=== PATIENT | male | born 1975 | race Caucasian/White ===

== ENCOUNTER 2024-10-20 12:56 | Inpatient (IN) | payer BC ==
[2024-10-20 14:46] LABS: Hematocrit 30.1 % (42.0-52.0); Hemoglobin 9.2 g/dL (14.0-18.0); Mean Corpuscular HGB CONC 30.6 g/dL (32.0-36.0); Mean Corpuscular Hemoglobin 31.5 pg (27.0-31.0); Mean Corpuscular Volume 103.1 fL (78.0-98.0); Mean Platelet Volume 9.1 fL (7.4-10.4); Platelet Count 146 10x3/uL (130-400); RBC Distribution Width 19.6 % (11.5-14.5); Red Blood Cell (RBC) Count 2.92 mill/uL (4.70-6.10); White Blood Cell (WBC) Count 45.26 10x3/uL (4.8-10.8)
[2024-10-20 14:58] LABS: INR-International Normal Ratio 1.4; PTT 37.4 sec (22.9-36.1)
[2024-10-20 15:04] LABS: ALT (SGPT) 13 U/L (Less than 45); AST (SGOT) 21 U/L (11-34); Albumin 1.8 g/dL (3.1-4.5); Alkaline Phosphatase 221 U/L (40-110); Anion Gap 15 mmol/L (10-20); BUN (Urea Nitrogen) 45 mg/dL (8.4-25.7); Bilirubin, Total 2.1 mg/dL (0.3-1.2); Calc. Creatinine Clearance 0 mL/min (70-130); Calcium 8.3 mg/dL (7.8-10.44); Carbon Dioxide 22 mmol/L (22-29); Chloride 103 mmol/L (98-107); Estimated GFR 26; Globulin 5.1 g/dL (2.4-3.5); Glucose 118 mg/dL (70-105); Lipase 32 U/L (8-78); Protein, Total 6.9 g/dL (6.0-8.3); Sodium 135 mmol/L (136-145)
[2024-10-20 15:07] LABS: Troponin I Less than 0.010 ng/mL (< 0.028)
[2024-10-20 15:10] LABS: Anisocytosis SLIGHT = 6-15 cells HPF (0-5); Burr Cells SLIGHT = 2-5 cells HPF (0-1); Hypochromia SLIGHT = 6-15 cells HPF (0-5); Lymphocytes 2 % (21-51); Macrocytosis SLIGHT = 6-15 cells HPF (0-5); Neutrophil 98 % (42-75); Platelet Adequacy Comment Platelets Normal; Polychromasia SLIGHT = 2-3 cells HPF (0-2)
[2024-10-20 15:15] LABS: Bilirubin 1+ (Negative); Blood, Urine 1+ (Negative); Clarity Turbid (Clear); Glucose, Urine (Dipstick) Normal (Negative); Ketone, Urine Negative (Negative); Leukocyte 25 Leu/uL (Negative); Nitrite Negative (Negative); Protein, Urine (Dipstick) 10 mg/dL (Neg-Trace); Specific Gravity, Urine 1.025 (1.002-1.036); Urobilinogen 6 mg/dL (Less than 2)
[2024-10-20 15:25] LABS: Bacteria/HPF Rare-Few HPF (None Seen); CAUTI Indications for Culture Alt mental st,lethar; RBC/HPF 0-3 HPF (0-3); Squamous Epithelial None Seen HPF (0-3); WBC/HPF 0-3 HPF (0-3)
[2024-10-20 15:27] LABS: Urine Culture Reflex No No
[2024-10-20] MEDS ORDERED: Calcium Carbonate 500 MG ChewTAB PO PRN (18:10)
[2024-10-20] MEDS ORDERED: Ondansetron ODT 4 MG TAB PO PRN (18:10)
[2024-10-20] MEDS ORDERED: OXYCODONE HCL 10 MG PO PRN (18:13)
[2024-10-20] MEDS ORDERED: Ipratropium/Albuterol 3 ML NEB NEB PRN (18:21)
[2024-10-20 18:22] LABS: Lactic Acid 2.43 mmol/L (0.50-2.20)
[2024-10-20 20:24] LABS: Troponin I Less than 0.010 ng/mL (< 0.028)
[2024-10-20 20:59] VITALS: BMI 21.3
[2024-10-20] MEDS ORDERED: Vancomycin Dose by Levels Sliding Scale (Wt <71) FS SCH (21:15)
[2024-10-20] MEDS: Lactulose 20 GM (30 mL) UDCUP PO SCH (21:55)
[2024-10-20] MEDS: oxyCODONE 5 MG TAB PO PRN (21:56)
[2024-10-20] MEDS: Thiamine 100 MG TAB PO SCH (21:56)
[2024-10-20] MEDS: Sodium Chloride 0.9% 250 ML IV SCH (21:57)
[2024-10-20] MEDS: metroNIDAZOLE 500 MG in Premix 1 BAG IVPB SCH (21:57)
[2024-10-20] MEDS: Cefepime 1 GM in Sodium Chloride 0.9% 100 ML IVPB SCH (21:57)
[2024-10-20] MEDS: Dextrose 5 % And 0.9 % NaCl 1,000 ML IV SCH (21:57)
[2024-10-20] MEDS: Albumin 25% 25 GM (100 mL) BOT IVPB SCH (21:57)
[2024-10-20] MEDS: Vancomycin 1.25 GM / NS 250 ML VIAL-2-BAG IVPB SCH (22:32)
[2024-10-20] MEDS: Rifaximin 550 MG TAB PO SCH (22:32)
[2024-10-20] MEDS: Vancomycin 1 GM in Premix 1 BAG IVPB SCH (23:02)
[2024-10-21] MEDS ORDERED: VICKS VAPORUB TOP PRN (00:45)
[2024-10-21] MEDS ORDERED: Vicks VapoRub 50 gm Jar TOP PRN (00:57)
[2024-10-21] MEDS: Midodrine HCl 5 MG TAB PO SCH ×2 (01:10→21:37)
[2024-10-21 02:52] LABS: Hematocrit 29.4 % (42.0-52.0); Hemoglobin 8.5 g/dL (14.0-18.0); Mean Corpuscular HGB CONC 28.9 g/dL (32.0-36.0); Mean Corpuscular Hemoglobin 31.4 pg (27.0-31.0); Mean Corpuscular Volume 108.5 fL (78.0-98.0); Mean Platelet Volume 8.8 fL (7.4-10.4); Platelet Count 113 10x3/uL (130-400); RBC Distribution Width 20.1 % (11.5-14.5); Red Blood Cell (RBC) Count 2.71 mill/uL (4.70-6.10); White Blood Cell (WBC) Count 32.35 10x3/uL (4.8-10.8)
[2024-10-21 02:55] LABS: Phosphorus 4.2 mg/dL (2.5-4.5)
[2024-10-21 02:56] LABS: Lactic Acid 1.85 mmol/L (0.50-2.20)
[2024-10-21 02:57] LABS: ALT (SGPT) 12 U/L (Less than 45); AST (SGOT) 17 U/L (11-34); Albumin 2.1 g/dL (3.1-4.5); Alkaline Phosphatase 190 U/L (40-110); Anion Gap 15 mmol/L (10-20); BUN (Urea Nitrogen) 55 mg/dL (8.4-25.7); Bilirubin, Total 1.8 mg/dL (0.3-1.2); Calc. Creatinine Clearance 29 mL/min (70-130); Calcium 7.9 mg/dL (7.8-10.44); Carbon Dioxide 20 mmol/L (22-29); Chloride 105 mmol/L (98-107); Estimated GFR 27; Globulin 4.5 g/dL (2.4-3.5); Glucose 105 mg/dL (70-105); Magnesium 1.9 mg/dL (1.6-2.6); Potassium 5.1 mmol/L (3.5-5.1); Protein, Total 6.6 g/dL (6.0-8.3); Sodium 135 mmol/L (136-145)
[2024-10-21 03:35] LABS: Anisocytosis MODERATE=16-30 cells HPF (0-5); Band 1 % (5-11); Lymphocytes 1 % (21-51); Macrocytosis SLIGHT = 6-15 cells HPF (0-5); Monocytes 1 % (0-10); Neutrophil 97 % (42-75); Platelet Adequacy Comment Platelets Decreased; Polychromasia SLIGHT = 2-3 cells HPF (0-2)
[2024-10-21] MEDS: Albumin 25% 25 GM (100 mL) BOT IVPB SCH (04:32)
[2024-10-21] MEDS: Acetaminophen 325 MG TAB PO PRN (05:36)
[2024-10-21] MEDS: Pantoprazole 40 MG DR.TAB PO SCH (07:53)
[2024-10-21] MEDS: Ondansetron PF 4 MG/2 ML Vial IVP PRN (14:31)
[2024-10-21] MEDS: Sodium Chloride 0.9% 1,000 ML IV SCH (18:43)
[2024-10-21] MEDS: Octreotide Acetate 1,250 MCG in Sodium Chloride 0.9% 250 ML 250 ML IVPB SCH (21:38)
[2024-10-22 00:23] LABS: Vancomycin, Trough 12.7 ug/mL
[2024-10-22] MEDS ORDERED: Vicks VapoRub 50 gm Jar ONE (00:57)
[2024-10-22] MEDS: VANCOMYCIN IV SCH (01:08)
[2024-10-22] MEDS: NACL 0.9% IV SCH (01:08)
[2024-10-22 02:17] LABS: Hematocrit 26.2 % (42.0-52.0); Hemoglobin 7.7 g/dL (14.0-18.0); Mean Corpuscular HGB CONC 29.4 g/dL (32.0-36.0); Mean Corpuscular Hemoglobin 31.6 pg (27.0-31.0); Mean Corpuscular Volume 107.4 fL (78.0-98.0); Mean Platelet Volume 9.2 fL (7.4-10.4); Platelet Count 73 10x3/uL (130-400); RBC Distribution Width 20.1 % (11.5-14.5); Red Blood Cell (RBC) Count 2.44 mill/uL (4.70-6.10); White Blood Cell (WBC) Count 27.97 10x3/uL (4.8-10.8)
[2024-10-22 02:45] LABS: Anion Gap 15 mmol/L (10-20); BUN (Urea Nitrogen) 57 mg/dL (8.4-25.7); Calc. Creatinine Clearance 29 mL/min (70-130); Calcium 7.8 mg/dL (7.8-10.44); Carbon Dioxide 19 mmol/L (22-29); Chloride 108 mmol/L (98-107); Estimated GFR 26; Glucose 106 mg/dL (70-105); Potassium 4.6 mmol/L (3.5-5.1); Sodium 137 mmol/L (136-145)
[2024-10-22 02:47] LABS: Lactic Acid 2.29 mmol/L (0.50-2.20)
[2024-10-22 02:53] LABS: Macrocytosis SLIGHT = 6-15 cells HPF (0-5); Monocytes 4 % (0-10); Neutrophil 96 % (42-75); Platelet Adequacy Comment Platelets Decreased; Smudge Cells 6.8 %
[2024-10-22 04:42] LABS: INR-International Normal Ratio 1.7; Prothrombin Time 19.8 sec (12.0-14.7)
[2024-10-22 04:46] LABS: Hematocrit 25.3 % (42.0-52.0); Hemoglobin 7.3 g/dL (14.0-18.0); Mean Corpuscular HGB CONC 28.9 g/dL (32.0-36.0); Mean Corpuscular Hemoglobin 30.9 pg (27.0-31.0); Mean Corpuscular Volume 107.2 fL (78.0-98.0); Mean Platelet Volume 8.6 fL (7.4-10.4); Platelet Count 95 10x3/uL (130-400); Red Blood Cell (RBC) Count 2.36 mill/uL (4.70-6.10); White Blood Cell (WBC) Count 28.02 10x3/uL (4.8-10.8)
[2024-10-22 04:54] LABS: ALT (SGPT) 11 U/L (Less than 45); AST (SGOT) 15 U/L (11-34); Albumin 2.9 g/dL (3.1-4.5); Alkaline Phosphatase 145 U/L (40-110); Anion Gap 13 mmol/L (10-20); BUN (Urea Nitrogen) 56 mg/dL (8.4-25.7); Bilirubin, Total 1.9 mg/dL (0.3-1.2); Calc. Creatinine Clearance 29 mL/min (70-130); Calcium 7.7 mg/dL (7.8-10.44); Carbon Dioxide 21 mmol/L (22-29); Chloride 108 mmol/L (98-107); Estimated GFR 27; Globulin 3.4 g/dL (2.4-3.5); Glucose 112 mg/dL (70-105); Potassium 4.3 mmol/L (3.5-5.1); Protein, Total 6.3 g/dL (6.0-8.3); Sodium 138 mmol/L (136-145)
[2024-10-22] MEDS: Melatonin 3 MG TAB PO SCH (04:59)
[2024-10-22] MEDS: Dexmedetomidine In 0.9 % NaCl 100 ML IVPB SCH (05:48)
[2024-10-22 06:11] LABS: Anisocytosis SLIGHT = 6-15 cells HPF (0-5); Band 1 % (5-11); Burr Cells SLIGHT = 2-5 cells HPF (0-1); Lymphocytes 1 % (21-51); Macrocytosis SLIGHT = 6-15 cells HPF (0-5); Monocytes 1 % (0-10); Neutrophil 97 % (42-75); Platelet Adequacy Comment Platelets Decreased; Polychromasia SLIGHT = 2-3 cells HPF (0-2); Smudge Cells 3.9 %
[2024-10-22] MEDS: NOREPINEPHRINE 8 MG/250 ML-D5W 250 ML IVPB SCH (08:05)
[2024-10-22] MEDS ORDERED: Vancomycin Dose by Levels Sliding Scale (Wt 71-99) FS SCH (10:45)
[2024-10-22] MEDS: Morphine 4 MG/ML VIAL ONE (11:00)
[2024-10-22] MEDS: Morphine 4 MG/ML VIAL SLOW IVP PRN (13:06)
[2024-10-22] MEDS: Lorazepam 2 MG/ML VIAL SLOW IVP PRN (13:24)
[2024-10-22 14:51] VITALS: TEMP 99
[2024-10-22 20:16] VITALS: BP 72/47
== END 2024-10-23 06:35 | disposition expired | DRG 441 ==
LOC: ERS 12:56 → 2NO 19:33 → CCU 10-22 01:57 → T4-B 10-22 14:35
PROVIDERS: ADMIT Internal Medicine; ATTEND Emergency Medicine
PROC: 30233J1 Transfusion of Nonautologous Serum Albumin into Peripheral Vein, Percutaneous Approach (ICD-10-PCS; principal; 2024-10-20)
PROC: 3E03329 Introduction of Other Anti-infective into Peripheral Vein, Percutaneous Approach (ICD-10-PCS; 2024-10-20)
PROC: 3E033XZ Introduction of Vasopressor into Peripheral Vein, Percutaneous Approach (ICD-10-PCS; 2024-10-22)
DX: K76.82 Hepatic encephalopathy (principal); G93.41 Metabolic encephalopathy; J96.01 Acute respiratory failure with hypoxia; I81 Portal vein thrombosis; E87.1 Hypo-osmolality and hyponatremia; E87.20 Acidosis, unspecified; Z51.5 Encounter for palliative care; Z66 Do not resuscitate; D68.9 Coagulation defect, unspecified; N17.9 Acute kidney failure, unspecified; J90 Pleural effusion, not elsewhere classified; K74.69 Other cirrhosis of liver; Z88.8 Allergy status to other drugs, medicaments and biological substances; N18.2 Chronic kidney disease, stage 2 (mild); Z79.899 Other long term (current) drug therapy; G89.4 Chronic pain syndrome; Z90.49 Acquired absence of other specified parts of digestive tract; Z98.890 Other specified postprocedural states; D63.1 Anemia in chronic kidney disease; F41.9 Anxiety disorder, unspecified; K21.9 Gastro-esophageal reflux disease without esophagitis; M54.2 Cervicalgia; K59.00 Constipation, unspecified; E86.0 Dehydration; R57.8 Other shock; E88.09 Other disorders of plasma-protein metabolism, not elsewhere classified; Z76.82 Awaiting organ transplant status; D72.829 Elevated white blood cell count, unspecified
CPT/HCPCS: 36415; 36416; 70450; 71045; 76705; 80053; 80202; 81001; 82105; 82140; 83605; 83690; 83735; 83880; 84100; 84484; 85025; 85610; 85730; 86141; 87040; 87081; 93005; 93970; 96360; 96361; J0692; J2060; J2270; J2354; J2405; J3370; J7030; J7042; J7050; P9047